=== PATIENT | male | born 1990 | race Caucasian/White ===

== ENCOUNTER 2017-10-14 02:59 | Emergency (ER) | payer OTHER ==
[~2017-10-14 02:59] MED LIST: ACET325 PO; Bactrim Ds Tab1 EACH PO; CEPH500 PO; CYCL10 PO; MELO7.5 PO; Naprosyn500 MG PO; Norco 5-325 Ta1 EACH PO
== END 2017-10-14 03:15 | disposition left against medical advice (07) ==
LOC: ER 02:59
DX: Z53.21 Procedure and treatment not carried out due to patient leaving prior to being seen by health care provider (principal)